=== PATIENT | male | born 1990 | race Two or more races ===

== ENCOUNTER 2017-01-10 17:05 | Emergency (ER) | payer MEDICAID ==
[~2017-01-10] VITALS: Ht 160 cm; Wt 90.7 kg
[2017-01-10 17:15] VITALS: BP 140/96
== END 2017-01-10 18:18 | disposition left against medical advice (07) ==
LOC: ER 17:16
DX: H57.8 Other specified disorders of eye and adnexa (principal); Z53.21 Procedure and treatment not carried out due to patient leaving prior to being seen by health care provider